=== PATIENT | female | born 1970 | race Caucasian/White ===

== ENCOUNTER → 2017-03-03 | Outpatient (CLI) | payer MEDICAID | LOC: FIMAGING 11:38 | DX: S46.912D Strain of unspecified muscle, fascia and tendon at shoulder and upper arm level, left arm, subsequent encounter (principal) ==

== ENCOUNTER 2017-06-09 00:06 | Emergency (ER) | payer MEDICAID ==
[2017-06-09 00:34] VITALS: BP 128/95; TEMP 98.1
--- NOTE | 2017-06-09 00:44 | EDPHY ---
H & P Stated Complaint: THINKS SHE WAS EXPOSED TO GAS IN HER HOUSE HPI/ROS: HPI CHIEF COMPLAINT: Trouble breathing at her apartment from fumes HISTORY OF PRESENT ILLNESS: This patient very pleasant 46-year-old female, she has significant past medical history for thyroid disease, hyponatremia, she does smoke tobacco daily, she presents emergency room by private vehicle states that there is a foul smell in her apartment it is making her feel as if she cannot breathe. She states they sprayed for bed bugs on ever since then she has been feeling ill. She denies chest pain or shortness of breath denies abdominal pain. Denies nausea vomiting. She does not want go back to her apartment. She presented to the emergency room and stating that she would not like to go back to apartment. Upon arrival here in emergency room she is resting comfortably clear lung sounds good air movement and in no acute distress. She appears well nontoxic. Patient distally tells me she feels anxious. Past Medical History: Hyponatremia, thyroid disease, hypertension Past Surgical History: No recent surgical history Social History: Denies daily alcohol or drugs, smokes tobacco daily Family History: Noncontributory ROS REVIEW OF SYSTEMS: A comprehensive 10 point review of systems is otherwise negative aside from elements mentioned in the history of present illness. Exam Constitutional appears well nontoxic,triage nursing summary reviewed, vital signs reviewed, awake/alert. Eyes normal conjunctivae and sclera, EOMI, PERRLA. HENT normal inspection, atraumatic, moist mucus membranes, no epistaxis, neck supple/ no meningismus, no raccoon eyes. Respiratory clear to auscultation bilaterally, normal breath sounds, no respiratory distress, no wheezing. Cardiovascular rate normal, regular rhythm, no murmur, no edema, distal pulses normal. Gastrointestinal soft, non-tender, no rebound, no guarding, normal bowel sounds, no distension, no pulsatile mass. Genitourinary no CVA tenderness. Musculoskeletal no midline vertebral tenderness, full range of motion, no calf swelling, no tenderness of extremities, no meningismus, good pulses, neurovascularly intact. Skin pink, warm, & dry, no rash, skin atraumatic. Neurologic awake, alert and oriented x 3, AAOx3, moves all 4 extremities equally, motor intact, sensory intact, CN II-XII intact, normal cerebellar, normal vision, normal speech. Psychiatric normal mood/affect. Heme/Lymph/Immune no lymphadenopathy. Differential Diagnosis: Includes but is not limited to in a particular order feeling ill from exposure from bed bug spray, chemical exposure, anxiety Medical Decision Making: Plan for this patient she has normal set of vitals, good breath sounds bilaterally, no hypoxia no acute distress. She appears well nontoxic not ill. No indication for blood work or any further medical workup here in emergency room. I do recommend she refrain from going back to her apartment stays with a friend. Contact her apartment airline managerial supervisor discuss options and trying to air at her apartment. She understands. Source: Patient - Personal History Current Tetanus/Diphtheria Vaccine: Yes Current Tetanus Diphtheria and Acellular Pertussis (TDAP): Yes Tetanus Vaccine Date: 2006 - Medical/Surgical History Hx Asthma: Yes Hx Chronic Respiratory Disease: No Hx Diabetes: No Hx Cardiac Disease: No Hx Renal Disease: No Hx Cirrhosis: No Hx Alcoholism: No Hx HIV/AIDS: No Hx Splenectomy or Spleen Trauma: No Other PMH: PMH- asthma, depression, hyperthyroid, HTN. denies any surgeries - Social History Smoking Status: Former smoker Constitutional: Initial Vital Signs Temperature (C) 36.7 C 06/09/17 00:10 Heart Rate 95 06/09/17 00:10 Respiratory Rate 18 06/09/17 00:10 Blood Pressure 128/95 H 06/09/17 00:10 O2 Sat (%) 99 06/09/17 00:10 O2 Delivery Mode Room Air Allergies/Adverse Reactions: No Known Allergies Allergy (Verified 06/09/17 00:34) Home Medications: Medication Instructions Recorded Levothyroxine [Synthroid 75 mcg 75 mcg PO MOTUWETHFRSA@2100 #14 tab 06/16/14 (*)] OLANZapine DISINTEGR [ZyPREXA 10 mg PO HS #14 tab 06/16/14 ZYDIS (*)] Departure - Departure Disposition: Home, Routine, Self-Care Clinical Impression: Anxiety Condition: Good Instructions: Anxiety (ED) Additional Instructions: 1. Please contact your manager work at her apartment discuss about the fumes in her apartment. 2. Stay with a friend this evening. Air out your apartment. Referrals: Maria Ines Olivas MD [Primary Care Provider] - As per Instructions
[2017-06-09 01:29] VITALS: PULSE 86; RESP 16; O2SAT 98
== END 2017-06-09 01:18 | disposition home or self-care (01) ==
DX: F41.9 Anxiety disorder, unspecified (principal); I10 Essential (primary) hypertension; J45.909 Unspecified asthma, uncomplicated; Z87.891 Personal history of nicotine dependence

== ENCOUNTER 2017-06-11 09:03 | Emergency (ER) | payer MEDICAID ==
[~2017-06-11 09:03] MED LIST: CEPHALEXIN 500 MG CAP PO SCH
[2017-06-11 09:26] LABS: % IMMATURE GRANULYOCYTES 0.2 % (0.0-1.1); ABSOLUTE IMMATURE GRANULOCYTES 0.01 10^3/uL (0.00-0.10); ADD DIFF? NO; ADD MORPH? NO; ADD SCAN? NO; ATYPICAL LYMPHOCYTE FLAG 0 (0-99); FRAGMENT RBC FLAG 0 (0-99); HEMOGLOBIN 14.6 g/dL (12.6-16.3); LEFT SHIFT FLG 0 (0-99); LIPEMIA HEMOLYSIS FLAG 90 (0-99); MEAN CELL HEMOGLOBIN 31.4 pg (27.9-34.1); MEAN CELL HEMOGLOBIN CONCENTR. 34.8 g/dL (32.4-36.7); MEAN CELL VOLUME 90.3 fL (81.5-99.8); MEAN PLATELET VOLUME 8.8 fL (8.7-11.7); PLATELET CLUMPS FLAG 0 (0-99); PLATELET COUNT 376 10^3/uL (150-400); RED BLOOD CELL COUNT 4.65 10^6/uL (4.18-5.33); RED CELL DISTRIBUTION WIDTH 13.2 % (11.5-15.2)
--- NOTE | 2017-06-11 09:28 | CPEKG ---
Heart Rate: 92 RR Interval: 652 P-R Interval: 160 QRSD Interval: 74 QT Interval: 344 QTC Interval: 426 P [place]: 76 QRS [place]: 72 T Wave [place]: -65 EKG Severity - NORMAL ECG - EKG Impression: SINUS RHYTHM Electronically Signed By: Korey Lay 11-Jun-2017 09:32:34
[2017-06-11 09:42] LABS: ANION GAP 15 mEq/L (8-16); CALCIUM 9.7 mg/dL (8.5-10.4); CARBON DIOXIDE 17 mEq/l (22-31); CHLORIDE 106 mEq/L (97-110); CREATININE 0.8 mg/dL (0.6-1.0); GLOMERULAR FILTRATION RATE > 60; GLUCOSE 175 mg/dL (70-100); POTASSIUM 3.8 mEq/L (3.5-5.2); SODIUM 138 mEq/L (134-144)
[2017-06-11] MEDS ORDERED: NS 1,000 ML IV ONE (09:51)
--- NOTE | 2017-06-11 09:55 | EDPHY ---
H & P Stated Complaint: Failure To Thrive, weakness Time Seen by Provider: 06/11/17 09:03 HPI/ROS: CHIEF COMPLAINT: weakness HISTORY OF PRESENT ILLNESS: 46-year-old female presents to the emergency department by ambulance after her sister call for a welfare check. Patient's sister has not heard from her in a few days which is unusual. Upon arrival patient was in bed. She states she has been in bed for a few days and does not feel well. She states she feels weak. Patient reports she has not eaten or had anything to drink taken her medications for a few days. She says this is unusual for her. She denies trauma, no head strike. Patient denies chest pain , shortness of breath, nausea, vomiting or diarrhea. She denies fevers. No cough, nasal congestion or sore throat. Patient states the last time she urinated was last night. REVIEW OF SYSTEMS: A comprehensive 10 point review of systems is otherwise negative aside from elements mentioned in the history of present illness. Source: Patient, Family, EMS Exam Limitations: Clinical condition - Personal History Tetanus Vaccine Date: 2006 - Medical/Surgical History Hx Asthma: Yes Hx Chronic Respiratory Disease: No Hx Diabetes: No Hx Cardiac Disease: No Hx Renal Disease: No Hx Cirrhosis: No Hx Alcoholism: No Hx HIV/AIDS: No Hx Splenectomy or Spleen Trauma: No Other PMH: PMH- asthma, depression, hyperthyroid, HTN. denies any surgeries - Social History Smoking Status: Heavy smoker Alcohol Use: None Drug Use: None - Physical Exam Exam: Physical Exam Gen: Alert and Oriented, NAD, very thin HEENT: PERRL, dry mucous membranes NECK: no meningismus CV: Tachycardic rate and regular rhythm PULM: CTAB, no wheezes ABDOMEN: soft, non tender to palpation, BS present BACK: No CVA tenderness NEURO: Neurologically grossly intact EXTREMITIES: normal appearing SKIN: no rash or break in skin on exposed skin PSYCH: answers questions appropriately. Constitutional: Initial Vital Signs Temperature (C) 37.1 C 06/11/17 09:13 Heart Rate 107 H 06/11/17 09:13 Respiratory Rate 16 06/11/17 09:13 Blood Pressure 134/96 H 06/11/17 09:13 O2 Sat (%) 95 06/11/17 09:13 O2 Delivery Mode Room Air Allergies/Adverse Reactions: No Known Allergies Allergy (Verified 06/09/17 00:34) Home Medications: Medication Instructions Recorded Levothyroxine [Synthroid 75 mcg 75 mcg PO RONNELL@2100 #14 tab 06/16/14 (*)] Cephalexin [Keflex] 500 mg PO BID 5 Days 06/11/17 Lisinopril 06/11/17 QUEtiapine FUMARATE 06/11/17 Medical Decision Making ED Course/Re-evaluation: 12pm-patient ambulatory without difficulty, stable gait. Patient's TSH is 24. She states she has missed her Synthroid for the past 3 days , maybe more. She missed her case management [facility] appointment to day though has an appointment with them on June 18. Our hospital block and case maker has confirmed this. The patient also has an appointment [facility] days. I have discussed with the patient the importance of taking her medications as prescribed. I will place her on Keflex for a urinary tract infection. Prescription has been dispensed through our pharmacy. Patient is given return precautions for any new symptoms, worsening symptoms or concerns. She reports feeling better after receiving 1 L of normal saline. Patient feels comfortable being discharged home. Patient has been seen by case management who has arranged follow-up care. Differential Diagnosis: Diagnosis considered but not limited to electrolyte abnormality, psychosis, hypothyroidism, urinary tract infection - Data Points Laboratory Results: Laboratory Results 06/11/17 09:16 06/11/17 09:16 06/11/17 06/11/17 06/11/17 11:35 09:16 09:16 WBC 6.19 10^3/uL 10^3/uL (3.80-9.50) RBC 4.65 10^6/uL 10^6/uL (4.18-5.33) Hgb 14.6 g/dL g/dL (12.6-16.3) Hct 42.0 % % (38.0-47.0) MCV 90.3 fL fL (81.5-99.8) MCH 31.4 pg pg (27.9-34.1) MCHC 34.8 g/dL g/dL (32.4-36.7) RDW 13.2 % % (11.5-15.2) Plt Count 376 10^3/uL 10^3/uL (150-400) MPV 8.8 fL fL (8.7-11.7) Neut % (Auto) 62.9 % % (39.3-74.2) Lymph % (Auto) 29.7 % % (15.0-45.0) [place] % (Auto) 5.7 % % (4.5-13.0) Eos % (Auto) 0.5 % L % (0.6-7.6) Baso % (Auto) 1.0 % % (0.3-1.7) Nucleat RBC Rel Count 0.0 % % (0.0-0.2) Absolute Neuts (auto) 3.90 10^3/uL 10^3/uL (1.70-6.50) Absolute Lymphs (auto) 1.84 10^3/uL 10^3/uL (1.00-3.00) Absolute Monos (auto) 0.35 10^3/uL 10^3/uL (0.30-0.80) Absolute Eos (auto) 0.03 10^3/uL 10^3/uL (0.03-0.40) Absolute Basos (auto) 0.06 10^3/uL 10^3/uL (0.02-0.10) Absolute Nucleated RBC 0.00 10^3/uL 10^3/uL (0-0.01) Immature Gran % 0.2 % % (0.0-1.1) Immature Gran # 0.01 10^3/uL 10^3/uL (0.00-0.10) Sodium 138 mEq/L mEq/L (134-144) Potassium 3.8 mEq/L mEq/L (3.5-5.2) Chloride 106 mEq/L mEq/L (97-110) Carbon Dioxide 17 mEq/l L mEq/l (22-31) Anion Gap 15 mEq/L mEq/L (8-16) BUN 13 mg/dL mg/dL (7-23) Creatinine 0.8 mg/dL mg/dL (0.6-1.0) Estimated GFR > 60 Glucose 175 mg/dL H mg/dL (70-100) Calcium 9.7 mg/dL mg/dL (8.5-10.4) Creatine Kinase 76 IU/L IU/L (0-156) TSH 24.800 uIU/mL H uIU/mL (0.465-4.680) Urine Color YELLOW Urine Appearance MODERATELY TURBID Urine pH 5.0 (5.0-7.5) Ur Specific [place] 1.017 (1.002-1.030) Urine Protein 1+ H (NEGATIVE) Urine Ketones 2+ H (NEGATIVE) Urine Blood 3+ H (NEGATIVE) Urine Nitrate NEGATIVE (NEGATIVE) Urine Bilirubin NEGATIVE (NEGATIVE) Urine Urobilinogen 2.0 EU H EU (0.2-1.0) Ur Leukocyte Esterase NEGATIVE (NEGATIVE) Urine RBC 50-182 /hpf H /hpf (0-3) Urine WBC 1-3 /hpf /hpf (0-3) Ur Epithelial Cells 3+ /lpf H /lpf (NONE-1+) Urine Bacteria 3+ /hpf H /hpf (NONE SEEN) Hyaline Casts 1-5 /lpf /lpf (0-1) Urine Mucus 4+ /lpf H /lpf (NONE-1+) Urine Glucose 1+ H (NEGATIVE) Medications Given: Discontinued Medications Sodium Chloride (Ns) 1,000 mls @ 0 mls/hr IV ONCE ONE; Wide Open PRN Reason: Protocol Stop: 06/11/17 09:52 Last Admin: 06/11/17 09:56 Dose: 1,000 mls Departure - Departure Disposition: Home, Routine, Self-Care Clinical Impression: Urinary tract infection Qualifiers: Urinary tract infection type: site unspecified Hematuria presence: with hematuria Qualified Code(s): N39.0 - Urinary tract infection, site not specified Hypothyroidism Qualifiers: Hypothyroidism type: unspecified Qualified Code(s): E03.9 - Hypothyroidism, unspecified Condition: Good Instructions: Cephalexin (By mouth), Urinary Tract Infection in Women (ED) Additional Instructions: Follow up with [facility], [address] [place], [place] [id number], appointment with Dr. Ely Rees on Thursday06/15/17 at 11:00AM. Please arrive a minimum of 15 minutes early for your scheduled appointment. Follow up with your block and case maker, Juliana at [address] [address] on Thursday06/13/17 to schedule an appointment. Follow up with [facility] prescriber, Dr. Antionette Cooley. Appointment scheduled for , 06/18/17 at 1PM. Take 500 mg of Keflex twice daily for 5 days for a urinary tract infection. Return to the emergency department immediately for any worsening symptoms, new symptoms or concerns. Referrals: Maria Ines Olivas MD [Primary Care Provider] - As per Instructions [facility] [Outside] - As per Instructions Prescriptions: Cephalexin [Keflex] 500 mg PO BID 5 Days
[2017-06-11 12:05] LABS: COLOR YELLOW; LEUKOCYTE ESTERASE,URINE NEGATIVE (NEGATIVE); NITRITE,URINE NEGATIVE (NEGATIVE)
[2017-06-11 12:13] LABS: BACTERIA 3+ /hpf (NONE SEEN); MUCUS 4+ /lpf (NONE-1+); RBC,URINE 50-182 /hpf (0-3)
[2017-06-11 13:03] VITALS: BP 117/79; PULSE 77; RESP 18; TEMP 97.9; O2SAT 98
== END 2017-06-11 13:03 | disposition home or self-care (01) ==
LOC: EDUNIT#
DX: N39.0 Urinary tract infection, site not specified (principal); E03.9 Hypothyroidism, unspecified; B96.89 Other specified bacterial agents as the cause of diseases classified elsewhere; J45.909 Unspecified asthma, uncomplicated; I10 Essential (primary) hypertension; F17.200 Nicotine dependence, unspecified, uncomplicated

== ENCOUNTER 2018-04-29 18:45 | Emergency (ER) | payer MEDICAID ==
[2018-04-29 18:51] VITALS: BP 149/80
--- NOTE | 2018-04-29 19:01 | EDPHY ---
H & P Stated Complaint: nausea , tasted soap in mouth after washing hands and smoking a cigarete Time Seen by Provider: 04/29/18 18:45 HPI/ROS: CHIEF COMPLAINT: Taste of soap in mouth HISTORY OF PRESENT ILLNESS: The patient presents the emergency department with a taste of soap in her mouth. She believes she may have gotten her mouth from washing her hands earlier today. The patient denies any additional complaints. The patient has no history of fever, cough, abdominal pain, vomiting or head injury. REVIEW OF SYSTEMS: A comprehensive 10 point review of systems is otherwise negative aside from elements mentioned in the history of present illness. Source: Patient - Personal History LMP (Females 10-55): Now Tetanus Vaccine Date: 2006 - Medical/Surgical History Hx Asthma: Yes Hx Chronic Respiratory Disease: No Hx Diabetes: No Hx Cardiac Disease: No Hx Renal Disease: No Hx Cirrhosis: No Hx Alcoholism: No Hx HIV/AIDS: No Hx Splenectomy or Spleen Trauma: No Other PMH: PMH- asthma, depression, hyperthyroid, HTN. denies any surgeries - Social History Smoking Status: Heavy smoker - Physical Exam Exam: General Appearance: Alert, no distress Eyes: Pupils equal and round no pallor or injection ENT, Mouth: Mucous membranes moist Respiratory: There are no retractions, lungs are clear to auscultation Cardiovascular: Regular rate and rhythm Gastrointestinal: Abdomen is soft and nontender, no masses, bowel sounds normal Neurological: 5/5 strength all 4 extremities Skin: Warm and dry, no rashes Musculoskeletal: Neck is supple nontender Extremities: symmetrical, full range of motion Constitutional: Initial Vital Signs Temperature (C) 36.8 C 04/29/18 18:49 Heart Rate 90 04/29/18 18:49 Respiratory Rate 16 04/29/18 18:49 Blood Pressure 149/80 H 04/29/18 18:49 O2 Sat (%) 96 04/29/18 18:49 O2 Delivery Mode Room Air Allergies/Adverse Reactions: No Known Allergies Allergy (Verified 06/09/17 00:34) Home Medications: Medication Instructions Recorded Levothyroxine [Synthroid 75 mcg 75 mcg PO RONNELL@2100 #14 tab 06/16/14 (*)] Lisinopril 06/11/17 QUEtiapine FUMARATE 06/11/17 Medical Decision Making ED Course/Re-evaluation: The patient presents to the emergency department with a bad taste in her mouth after likely getting soap on her hands earlier today. The patient has been reassured I see no evidence of an acute emergency condition. She is discharged from the emergency department. Departure - Departure Disposition: Home, Routine, Self-Care Clinical Impression: Bad taste in mouth Condition: Good Instructions: Poison Proofing Your Home (ED) Additional Instructions: 1. Follow up with your primary care provider as scheduled. Referrals: Maria Ines Olivas MD [Primary Care Provider] - As per Instructions
== END 2018-04-29 19:14 | disposition home or self-care (01) ==
LOC: EDUNIT#
DX: R43.2 Parageusia (principal); J45.909 Unspecified asthma, uncomplicated; F17.200 Nicotine dependence, unspecified, uncomplicated; I10 Essential (primary) hypertension

== ENCOUNTER 2018-05-01 12:58 | Inpatient (IN) | payer MEDICAID ==
--- NOTE | 2018-05-01 13:01 | EDPHY ---
HPI/HX/ROS/PE/MDM Narrative: CHIEF COMPLAINT: Nausea, vomiting, diarrhea HISTORY OF PRESENT ILLNESS: The patient is a 47 y/o female with a history of hypertension, asthma, and depression arriving via EMS after developing nausea, vomiting, diarrhea, painful urination, dizziness, and a subjective fever yesterday. She has had a total of 4-5 episodes of vomiting and several episodes of diarrhea today. Denies blood in vomit, diarrhea, or urine. Denies being around people with similar symptoms or eating abnormal food. Today her symptoms did not improve which concerned the patient so she called EMS. While en route to the hospital she was given 4mg IV Zofran for nausea, which mildly alleviated her symptoms. Denies history of abdominal surgery. Denies history of asthma or emphysema. Denies illicit drug use although she does use tobacco. No chills, cough, chest pain, shortness of breath, palpitations, frequent urination, headache, lightheadedness. She was in this emergency department 2 days ago with the taste of soap in her mouth and was discharged home. REVIEW OF SYSTEMS: Aside from elements discussed in the HPI, a comprehensive 10-point review of systems was reviewed and is negative. PAST MEDICAL HISTORY: Hypertension, asthma, depression, hyperthyroid, right ankle surgery SOCIAL HISTORY: Lives in [place], , not employed, smoker VITAL SIGNS: Reviewed by me GENERAL: Well-developed, well-nourished, resting comfortably in no respiratory distress. HEENT: Atraumatic. Eyes: No icterus, no injection. Mouth: moist mucous membranes. No erythema or lesions. Neck: supple with no adenopathy. LUNGS: Bilateral scattered rhonchi and coarse breath sounds, no wheezes or rales. CARDIAC: Regular rate and rhythm, no rubs, murmurs or gallops. ABDOMEN: Mild right upper quadrant tenderness. Soft, nondistended, bowel sounds normal. BACK: No CVA tenderness. EXTREMITIES: No trauma. No edema. Range of motion is normal throughout. NEURO: Alert and oriented, grossly nonfocal. SKIN: Warm and dry, no rash. PSYCHIATRIC: Normal mentation, no agitation. Portions of this note were transcribed by a medical office specialist. I personally performed a history, physical exam, medical decision making, and confirmed accuracy of information the transcribed note. ED Course: The patient is a 47 y/o female with a history of hypertension, asthma, and depression arriving via EMS after developing nausea, vomiting, diarrhea, painful urination, dizziness, and a subjective fever yesterday. On exam she has bilateral scattered rhonchi and coarse breath sounds as well as mild right upper quadrant tenderness to palpation. Labs and chest x-ray ordered. 1L IV NS administered. 1354: Patient has a sodium of 112; patient will need to be admitted for her symptoms as well as hyponatremia. Chest x-ray is consistent with airways disease without any focal infiltrate. 1405: Spoke with hospitalist service, Dr. Gusman accepts admission of this patient. MDM: Differential diagnosis of the patient's nausea and vomiting was considered including but not limited to gastroenteritis, gastritis, electrolyte abnormalities, dehydration, alcohol intoxication, withdrawal symptoms, intraabdominal processes including appendicitis, pancreatitis, bowel obstruction and medication side effect. - Data Points Imaging Results: CXR: Impression: 1. Findings most consistent with airways disease are noted. 2. See above report for additional findings. Dictated By: Denis Augustin MD Imaging: I viewed and interpreted images myself Laboratory Results: Laboratory Results 05/01/18 13:00 05/01/18 13:04 Medications Given: Dextrose (D5w) 1,000 mls @ 25 mls/hr IV CONT JAMI Stop: 10/28/18 21:59 Last Admin: 05/02/18 08:24 Dose: 1,000 mls Ondansetron HCl (Zofran) 4 mg IVP Q4HRS PRN PRN Reason: Nausea/Vomiting, Can't Take PO Stop: 10/28/18 14:39 Last Admin: 05/02/18 07:55 Dose: 4 mg Ondansetron HCl (Zofran Odt) 4 mg PO Q4HRS PRN PRN Reason: Nausea/Vomiting, Use 1st Stop: 10/28/18 14:39 Last Admin: 05/02/18 19:27 Dose: 4 mg Discontinued Medications Desmopressin Acetate (Desmopressin 10 Mcg/0.1 Ml [place]) 10 mcg ALTNARE ONCE ONE Stop: 05/02/18 02:31 Last Admin: 05/02/18 02:20 Dose: 1 spray Sodium Chloride (Ns) 1,000 mls @ 0 mls/hr IV EDNOW ONE; Wide Open PRN Reason: Protocol Stop: 05/01/18 13:23 Last Admin: 05/01/18 13:25 Dose: 1,000 mls Sodium Chloride (1/2 Ns) 1,000 mls @ 75 mls/hr IV CONT JAMI Stop: 10/28/18 18:29 Last Admin: 05/01/18 18:37 Dose: 1,000 mls Potassium Chloride (Potassium Cl 10 Meq (Premix)) 100 mls @ 100 mls/hr IV Q1H JAMI Stop: 05/01/18 21:29 Last Admin: 05/01/18 20:41 Dose: Not Given Potassium Chloride (Klor-Con) 30 meq PO ONCE ONE Stop: 05/01/18 20:16 Last Admin: 05/01/18 20:29 Dose: 30 meq General Time Seen by Provider: 05/01/18 13:00 Initial Vital Signs: Initial Vital Signs Temperature (C) 36.7 C 05/01/18 12:58 Heart Rate 91 05/01/18 12:58 Respiratory Rate 16 05/01/18 12:58 Blood Pressure 128/89 H 05/01/18 12:58 O2 Sat (%) 97 05/01/18 12:58 O2 Delivery Mode Room Air Allergies/Adverse Reactions: No Known Allergies Allergy (Verified 05/01/18 13:05) Home Medications: Medication Instructions Recorded Cholecalciferol (Vitamin D3) 2,000 unit PO DAILY 05/02/18 [Vitamin D3] Levothyroxine Sodium 88 mcg PO DAILY 05/02/18 Mirtazapine [Remeron] 15 mg PO HS 05/02/18 OLANZapine [Zyprexa] 20 mg PO HS 05/02/18 Departure - Departure Disposition: [facility] Clinical Impression: Hyponatremia Diarrhea Qualifiers: Diarrhea type: unspecified type Qualified Code(s): R19.7 - Diarrhea, unspecified Nausea and vomiting Qualifiers: Vomiting type: unspecified Vomiting Intractability: non-intractable Qualified Code(s): R11.2 - Nausea with vomiting, unspecified Condition: Fair Report Scribed for: Angelica Mcgowan Report Scribed by: Patti Beckett Date of Report: 05/01/18 Time of Report: 13:01
[2018-05-01] MEDS ORDERED: NS 1,000 ML IV ONE (13:22)
[2018-05-01 13:31] LABS: PLATELET COUNT 423 10^3/uL (150-400)
[2018-05-01] MEDS ORDERED: LORazepam 2 MG/ML INJ IVP PRN (14:40)
[2018-05-01] MEDS ORDERED: LORazepam 0.5 MG TAB PO PRN (14:40)
[2018-05-01] MEDS ORDERED: oxyCODONE IR 5 MG TAB PO PRN (14:40)
--- NOTE | 2018-05-01 15:55 | GHP ---
[f rep st] HISTORY AND PHYSICAL DATE OF ADMISSION: 05/01/2018 CHIEF COMPLAINT: Nausea, vomiting. HISTORY: This is a 47-year-old female with a past medical history of hypothyroidism, as well as a hi story of what sounds like depression with psychotic features, who is admitted with complaints of naus ea, vomiting, and abdominal pain. The patient notes that she has had fairly persistent vomiting for the last 2 days. She has also had some bouts of diarrhea along with that. She has felt somewhat lig htheaded and dizzy but has had no loss of consciousness. She denies any sick contacts that she is aw are of. She, otherwise, denies any issues, including chest pain, shortness of breath, confusion. PAST MEDICAL HISTORY: 1. Hypothyroid. 2. Hypertension. 3. Depression with psychotic features. PAST SURGICAL HISTORY: Denies. SOCIAL HISTORY: Patient lives independently. She is unemployed. She is a nonsmoker. FAMILY HISTORY: Reviewed and noncontributory. REVIEW OF SYSTEMS: 10-point review of systems obtained and negative except as per HPI. HOME MEDICATIONS: 1. Quetiapine. 2. Lisinopril. 3. Levothyroxine. ALLERGIES: No known drug allergies. PHYSICAL EXAM: VITAL SIGNS: BP 117/79, heart rate 90, respiratory rate 16, O2 sats 97% on room air. Temperature is 36.7. GENERAL APPEARANCE: This is a thin female. She is awake and alert . She is in no acute distress. EYES: Anicteric. HENT: Dry mucous membranes. CARDIOVASCULAR: Re gular rate and rhythm. No M/R/G. PULMONARY: CTA bilaterally. Normal work of breathing. ABDOMEN: Soft, mild tenderness to palpation diffusely. Bowel sounds are decreased. EXTREMITIES: No clubbin g, cyanosis, or edema. SKIN: Warm, dry, well perfused. NEURO/PSYCH: Oriented and appropriate. CLINICAL DATA: Labs reviewed. Notable for a sodium of 112. White blood cell count of 10.4, hematoc rit of 36.3. Chest x-ray, personally reviewed and interpreted, shows central peribronchial thickening, consistent with airways disease. Otherwise, unremarkable. ASSESSMENT/PLAN: A 47-year-old female with a past medical history of hypothyroidism, hypertension, a nd depression with psychosis, admitted with profound hyponatremia. 1. Severe hyponatremia, somewhat difficult to determine how symptomatic she has from this, as she larson s evidence of cognitive dysfunction, some question of developmental delay versus all related to her p sychiatric history. At any rate, she does have gastrointestinal symptoms. She was given a liter of normal saline in the emergency room, and we will order stat sodium for recheck. We will order urine and serum osmolality, as well as serum sodium. The patient will be admitted to intensive care unit f or frequent, q.2 hours sodium checks. Renal has been consulted and will follow. We will also check a TSH given her history of hypothyroidism. Goal will be to increase her sodium by less than 10 mEq o corie the next 24 hours. 2. Hypothyroidism. Again, we will check a TSH. She is on levothyroxine, which will be continued. 3. Hypertension. Currently, blood pressure appears largely in the normal range. We will hold her l isinopril. 4. Depression with psychotic features. The patient does have a somewhat unusual affect and what darrian ears to be some cognitive dysfunction. Again, unclear if this is related to her psychiatric history versus developmental delay. We will resume her psychiatric medications, though this may be in part c ontributing to her hyponatremia. 5. Inpatient status. The patient will require a [id number]-hour stay for evaluation and manage ment of above. The patient is high risk given profound hyponatremia and concerns for rapid correctio n. Greater than 40 minutes of critical care time spent in the care of this patient in evaluation and man agement of above and discussion with emergency room and Renal regarding her treatment plan. /[id number]/MODL
--- NOTE | 2018-05-01 16:55 | PDMN ---
Medical Necessity Medical necessity: C/M review: est. > 2 MN LOS for eval and TX of acute and persistent severe hyponatremia requiring planned Nephrology consult, ongoing Q 2 hr. Na checks, cardiac monitoring in ICU, comorbid hypothyroidism, hypertension, depression with psychotic features, some cognitive dysfunction - unclear if related to psychiatric history versus developmental delay, history of nausea, vomiting, abdominal pain, diarrhea for two days prior to this admission per H/P.
[2018-05-01] MEDS ORDERED: PROTOCOL POTASSIUM 1 DOSE MISC PRN (17:19)
--- NOTE | 2018-05-01 18:25 | PDCONSULT ---
Mold Design Engineer Note: Assessment/Plan: Hyponatremia: Pt with sodium of 112 on presentation, up to 123 now after 1L NS. She responded quickly to IVFs, but urine studies more consistent with SIADH. - Want to avoid rapid correction as not clear how long she has been low. - Goal sodium tomorrow is 118-120. - Will start on 1/2NS. - Will continue to monitor sodium q2h and adjust fluids as needed. - Will check TSH and am cortisol. Hypokalemia: K 3.3, will replace and continue to monitor. Thank you for the interesting consult. Nephrology will continue to follow, please call if you have any additional questions or concerns. H & P Stated Complaint: n/v/d Time Seen by Provider: 05/01/18 13:00 HPI/ROS: HPI: Ms. Fam is a 47 yo F with h/o HTN and hypothyroidism who presents to ER today with complaints of N/V/D/abdominal pain. Pt states that she has been feeling poorly for the past two days. She has been having not frequent but loose and watery stools at home, abdominal pain and nausea. She has been vomiting today. She has had some lightheadedness and GOMEZ, denies any LOC or seizures She was a little confused at home. She denies taking any diuretics. She notes she has not been able to eat or drink much in the past few days. Na on presentation was 112. She was given 1L NS in ER and Na went up to 118 quickly and now is 123. She is feeling a little better but still has some nausea and abdominal pain. ROS: positive per HPI, rest of 10-point ROS negative Source: Patient - Personal History LMP (Females 10-55): Now Current Tetanus/Diphtheria Vaccine: Unsure Current Tetanus Diphtheria and Acellular Pertussis (TDAP): Unsure Tetanus Vaccine Date: 2006 - Medical/Surgical History Hx Asthma: Yes Hx Chronic Respiratory Disease: No Hx Diabetes: No Hx Cardiac Disease: No Hx Renal Disease: No Hx Cirrhosis: No Hx Alcoholism: No Hx HIV/AIDS: No Hx Splenectomy or Spleen Trauma: No Other PMH: PMH- asthma, depression, hyperthyroid, HTN. denies any surgeries - Family History Significant Family History: No pertinent family hx - Social History Smoking Status: Heavy smoker - Physical Exam Exam: General: alert and oriented, no acute distress Eyes; EOMI, PERRL OP: Clear, MMM Neck: supple, no thyromegaly CV: RRR, no edema BLE Resp; CTA bilat, nonlabored respirations Abd: soft, NT/ND Neuro; CN II-XII grossly intact, no asterixis Psych; cooperative, blunted affect Skin: C/D/I, no rash Constitutional: Initial Vital Signs Temperature (C) 36.7 C 05/01/18 12:58 Heart Rate 91 05/01/18 12:58 Respiratory Rate 16 05/01/18 12:58 Blood Pressure 128/89 H 05/01/18 12:58 O2 Sat (%) 97 05/01/18 12:58 O2 Delivery Mode Room Air Allergies/Adverse Reactions: No Known Allergies Allergy (Verified 05/01/18 13:05) Home Medications: Medication Instructions Recorded Levothyroxine [Synthroid 75 mcg 75 mcg PO CHRISTIANOETHCATIE@2100 #14 tab 06/16/14 (*)] Lisinopril 06/11/17 QUEtiapine FUMARATE 06/11/17 Lab and Imaging 05/01/18 13:00 05/01/18 16:30 WBC 10.46 10^3/uL (3.80-9.50) H 05/01/18 13:00 RBC 4.42 10^6/uL (4.18-5.33) 05/01/18 13:00 Hgb 13.3 g/dL (12.6-16.3) 05/01/18 13:00 Hct 36.3 % (38.0-47.0) L 05/01/18 13:00 MCV 82.1 fL (81.5-99.8) 05/01/18 13:00 MCH 30.1 pg (27.9-34.1) 05/01/18 13:00 MCHC 36.6 g/dL (32.4-36.7) 05/01/18 13:00 RDW 12.2 % (11.5-15.2) 05/01/18 13:00 Plt Count 423 10^3/uL (150-400) H 05/01/18 13:00 MPV 8.3 fL (8.7-11.7) L 05/01/18 13:00 Neut % (Auto) 63.2 % (39.3-74.2) 05/01/18 13:00 Lymph % (Auto) 29.4 % (15.0-45.0) 05/01/18 13:00 Pepin % (Auto) 5.6 % (4.5-13.0) 05/01/18 13:00 Eos % (Auto) 0.5 % (0.6-7.6) L 05/01/18 13:00 Baso % (Auto) 0.3 % (0.3-1.7) 05/01/18 13:00 Nucleat RBC Rel Count 0.0 % (0.0-0.2) 05/01/18 13:00 Absolute Neuts (auto) 6.61 10^3/uL (1.70-6.50) H 05/01/18 13:00 Absolute Lymphs (auto) 3.08 10^3/uL (1.00-3.00) H 05/01/18 13:00 Absolute Monos (auto) 0.59 10^3/uL (0.30-0.80) 05/01/18 13:00 Absolute Eos (auto) 0.05 10^3/uL (0.03-0.40) 05/01/18 13:00 Absolute Basos (auto) 0.03 10^3/uL (0.02-0.10) 05/01/18 13:00 Absolute Nucleated RBC 0.00 10^3/uL (0-0.01) 05/01/18 13:00 Immature Gran % 1.0 % (0.0-1.1) 05/01/18 13:00 Immature Gran # 0.10 10^3/uL (0.00-0.10) 05/01/18 13:00 Sodium 123 mEq/L (135-145) L 05/01/18 16:30 Potassium 3.3 mEq/L (3.3-5.0) 05/01/18 13:00 Chloride 81 mEq/L (97-110) L 05/01/18 13:00 Carbon Dioxide 19 mEq/l (22-31) L 05/01/18 13:00 Anion Gap 12 mEq/L (8-16) 05/01/18 13:00 BUN 2 mg/dL (7-23) L 05/01/18 13:00 Creatinine 0.5 mg/dL (0.6-1.0) L 05/01/18 13:00 Estimated GFR > 60 05/01/18 13:00 Glucose 127 mg/dL (70-100) H 05/01/18 13:00 Serum Osmolality 233 mosmo/kg (280-297) L 05/01/18 13:04 Calcium 8.6 mg/dL (8.5-10.4) 05/01/18 13:00 Total Bilirubin 0.4 mg/dL (0.1-1.4) 05/01/18 13:00 Conjugated Bilirubin 0.2 mg/dL (0.0-0.5) 05/01/18 13:00 Unconjugated Bilirubin 0.2 mg/dL (0.0-1.1) 05/01/18 13:00 AST 20 IU/L (14-46) 05/01/18 13:00 ALT 21 IU/L (9-52) 05/01/18 13:00 Alkaline Phosphatase 92 IU/L (38-126) 05/01/18 13:00 Total Protein 6.6 g/dL (6.3-8.2) 05/01/18 13:00 Albumin 3.9 g/dL (3.5-5.0) 05/01/18 13:00 Lipase 75 IU/L (23-300) 05/01/18 13:00 TSH 0.097 uIU/mL (0.465-4.680) L 05/01/18 13:04 Beta HCG, Qual NEGATIVE 05/01/18 13:00 Urine Color COLORLESS 05/01/18 14:30 Urine Appearance CLEAR 05/01/18 14:30 Urine pH 7.0 (5.0-7.5) 05/01/18 14:30 Ur Specific [place] 1.002 (1.002-1.030) 05/01/18 14:30 Urine Protein NEGATIVE (NEGATIVE) 05/01/18 14:30 Urine Ketones NEGATIVE (NEGATIVE) 05/01/18 14:30 Urine Blood 1+ (NEGATIVE) H 05/01/18 14:30 Urine Nitrate NEGATIVE (NEGATIVE) 05/01/18 14:30 Urine Bilirubin NEGATIVE (NEGATIVE) 05/01/18 14:30 Urine Urobilinogen NEGATIVE EU (0.2-1.0) 05/01/18 14:30 Ur Leukocyte Esterase NEGATIVE (NEGATIVE) 05/01/18 14:30 Urine RBC 1-3 /hpf (0-3) 05/01/18 14:30 Urine WBC NONE SEEN /hpf (0-3) 05/01/18 14:30 Ur Epithelial Cells NONE SEEN /lpf (NONE-1+) 05/01/18 14:30 Urine Mucus Not Reported 05/01/18 14:30 Urine Osmolality 130 mosmo/kg (300-900) L 05/01/18 14:58 Ur Random Creatinine 5.0 mg/dL 05/01/18 14:58 Ur Random Sodium 55 mEq/L (30-90) 05/01/18 14:58 Urine Glucose 1+ (NEGATIVE) H 05/01/18 14:30
[2018-05-01] MEDS ORDERED: 1/2 NS 1,000 ML IV SCH (18:30)
[2018-05-01] MEDS ORDERED: POTASSIUM CL 10 MEQ TAB PO ONE (20:15)
[2018-05-01] MEDS: POTASSIUM Cl (KCl) 100 ML IV SCH (20:41)
[2018-05-01] MEDS: ONDANSETRON 4 MG/2 ML VIAL IVP PRN (21:58)
[2018-05-02] MEDS ORDERED: DESMOPRESSIN 10 MCG/0.1 ML 5ML NASAL SPRAY ALTNARE ONE (02:30)
[2018-05-02] MEDS: ONDANSETRON 4 MG/2 ML VIAL IVP PRN (07:55)
[2018-05-02] MEDS: D5W 1,000 ML IV SCH (08:24)
--- NOTE | 2018-05-02 14:09 | HOSPPROG ---
Hospitalist Progress Note Assessment/Plan: 47 yo F with PMH of depression presenting with severe hyponatremia # severe hyponatremia: Na of 112 on arrival and increased significantly with 1L NS given in ER, likely hypovolemic, hypotonic hyponatremia 2/2 n/v/d x 2 days prior to presentation. She overcorrected overnight but Na now closer to goal with most recent being 120, would like patient to continue to increase by no more than 8-10 meq/24 hour period to avoid CPM. Currently receiving D5w to slow rate of correction, did require desmopressin overnight. # n/v/d: suspect viral gastroenteritis, sxs have now resolved # depression: previously severe and with psychotic features, will resume her remeron and olanzapine at HS # hypothyroid: with tsh appropriately suppressed on lt4, will continue # IP status, will need > 48 hours stay for eval mgmt of above Care plan reviewed with Dr. Martinez as above, Patient remains high risk and will continue q2 hour Na checks in ICU > 35 min critical care time spent in mgmt/eval of above Subjective: no significant overnight events, patient feeling a bit better today , no longer having significant n/v Objective: Vital Signs Temp Pulse Resp BP Pulse Ox 36.8 C 98 15 140/80 H 98 05/02/18 11:00 05/02/18 13:00 05/02/18 13:00 05/02/18 13:00 05/02/18 13:00 Laboratory Results 05/02/18 12:55 05/01/18 05/02/18 05/03/18 05:59 05:59 05:59 Intake Total 980 1250 Output Total 3600 800 Balance -2620 450 awake alert anicteric poor dentition rrr no mrg cta b soft nt nd no cce warm dry well perfused oriented appropriate ICD10 Worksheet Patient Problems: Problems Problem Status Onset Delirium Acute Major depressive disorder, recurrent episode with mood-congruent psychotic features Acute Diarrhea Acute Nausea and vomiting Acute Hyponatremia Acute
--- NOTE | 2018-05-02 16:59 | SOAPPROG ---
SOAP Progress Note Assessment/Plan: Assessment/Plan: Hyponatremia: pt with sodium of 112 on presentation, up to 123 after 1L NS and improved quickly afterward. Her urine studies were consistent with SIADH but she responded swiftly to IVFs. Want to avoid fast correction, was given D5W and DDAVP overnight to avoid that. - Na now 120, which is 8 point rise in 24 hrs. - Will continue D5W, lower rate to 75ml/hr. - Pt not on fluid restriction. - Goal sodium is to be no more than 125 by tomorrow am. - Will continue to monitor q3h. Hypokalemia: improved with replacement, will continue to monitor. Subjective: Pt had marked increase overnight in sodium from 112 yesterday afternoon to 131, was given DDAVP and continued D5W, and sodium came down. She notes no confusion now, dizziness improving, no N/V or abdominal pain. She still feels tired and weak. Objective: Vital Signs Temp Pulse Resp BP Pulse Ox 37 C 86 20 127/84 H 99 05/02/18 15:00 05/02/18 15:00 05/02/18 15:00 05/02/18 15:00 05/02/18 15:00 05/01/18 05/02/18 05/03/18 05:59 05:59 05:59 Intake Total 980 1490 Output Total 3600 1200 Balance -2620 290 General: alert and oriented, no acute distress Eyes; EOMI, PERRL OP: Clear CV: RRR Resp: nonlabored respirations on RA Abd: Soft, NT/ND Ext: no edema BLE Neuro: CN II-XII grossly intact ICD10 Worksheet Patient Problems: Problems Problem Status Onset Diarrhea Acute Hyponatremia Acute Nausea and vomiting Acute Delirium Acute Major depressive disorder, recurrent episode with mood-congruent psychotic features Acute
[2018-05-02] MEDS: ONDANSETRON DISINTEGRATING 4 MG TAB PO PRN (19:27)
[2018-05-02] MEDS ORDERED: POTASSIUM CL 10 MEQ TAB PO ONE (20:30)
[2018-05-02] MEDS: MIRTAZAPINE 15 MG TAB PO SCH (20:58)
[2018-05-02] MEDS: OLANZapine 10 MG TAB PO SCH (20:58)
[2018-05-03] MEDS: LEVOTHYROXINE 88 MCG TAB PO SCH (07:32)
--- NOTE | 2018-05-03 11:59 | HOSPPROG ---
Hospitalist Progress Note Assessment/Plan: 47 yo F with PMH of depression presenting with severe hyponatremia # severe hyponatremia: Na of 112 on arrival and increased significantly with 1L NS given in ER, likely hypovolemic, hypotonic hyponatremia 2/2 n/v/d x 2 days prior to presentation although urine studies more c/w SIADH, she has responded more consistent with low volume hyponatremia. Her Na has been fairly erratic following D5 as well as DDAVP, currently does seem to continue to improve and slowing rate of correction with D5. Asymptomatic now # n/v/d: suspect viral gastroenteritis, sxs have now resolved # depression: previously severe and with psychotic features, will resume her remeron and olanzapine at HS # hypothyroid: with tsh appropriately suppressed on lt4, will continue # IP status, will need > 48 hours stay for eval mgmt of above Care plan reviewed with Dr. Griffin as above, Patient remains high risk and will continue q2 hour Na checks in ICU > 35 min critical care time spent in mgmt/eval of above Subjective: no significant overnight events patient feeling beter Objective: Vital Signs Temp Pulse Resp BP Pulse Ox 37 C 79 19 124/84 H 98 05/03/18 11:00 05/03/18 11:00 05/03/18 11:00 05/03/18 11:00 05/03/18 11:00 Laboratory Results 05/03/18 09:55 05/02/18 05/03/18 05/04/18 05:59 05:59 05:59 Intake Total 980 3450 1500 Output Total 3600 4300 1600 Balance -2620 -850 -100 awake alert anicteric poor dentition rrr no mrg cta b soft nt nd no cce warm dry well perfused oriented appropriate ICD10 Worksheet Patient Problems: Problems Problem Status Onset Diarrhea Acute Hyponatremia Acute Nausea and vomiting Acute Delirium Acute Major depressive disorder, recurrent episode with mood-congruent psychotic features Acute
[2018-05-03] MEDS: D5W 1,000 ML IV SCH (12:17)
--- NOTE | 2018-05-03 14:08 | SOAPPROG ---
SOAP Progress Note Assessment/Plan: Assessment: 47 y/o F with hyponatremia. Hyponatremia: pt with sodium of 112 on presentation, up to 123 after 1L NS and improved quickly afterward. Her urine studies were consistent with SIADH but she responded swiftly to IVFs then dropped again on 05/02. - Na up to 127, goal today at 4pm about 125mg/dL however acute - Increased d5 to 200ml/hr - continue to monitor q3h - Pt not on fluid restriction - resend urine studies (previously low osm) at 4pm and most likely will need to resume fluid restriction tonight - may allow sodium to normalize if stable at 4pm and will consider lasix tomorrow - will continue to monitor, please contact if ?s Hypokalemia: improved with replacement, will continue to monitor. 05/03/18 14:06 05/03/18 14:43 Subjective: Running D5 all night. Patient collecting urine in hat. Trying to drink fluids. Getting up to walk and feeling well. Objective: Vital Signs Temp Pulse Resp BP Pulse Ox 36.5 C 80 21 H 131/85 H 98 05/03/18 13:06 05/03/18 13:06 05/03/18 13:06 05/03/18 13:06 05/03/18 13:06 Laboratory Results 05/03/18 12:50 05/02/18 05/03/18 05/04/18 05:59 05:59 05:59 Intake Total 980 3450 1500 Output Total 3600 4300 1800 Balance -2620 -850 -300 Physical Exam - Physical Exam General Appearance: WD/WN, alert, no apparent distress, thin EENT: PERRL/EOMI Neck: non-tender, full range of motion, supple Respiratory: chest non-tender, lungs clear, normal breath sounds Cardiac/Chest: normal peripheral pulses, regular rate, rhythm Abdomen: normal bowel sounds, non-tender, soft Back: Normal inspection Skin: normal color, warm/dry Extremities: normal range of motion, non-tender Neuro/Psych: no motor/sensory deficits, alert, depressed affect ICD10 Worksheet Patient Problems: Problems Problem Status Onset Diarrhea Acute Hyponatremia Acute Nausea and vomiting Acute Delirium Acute Major depressive disorder, recurrent episode with mood-congruent psychotic features Acute
--- NOTE | 2018-05-03 16:08 | ASMTCMCOM ---
CM Note CM Note Notes: Pt was admitted with hyponatremia after n/v and abdominal pain x2 days. She has a hx of depression. She lives alone and has a previous admission about 10 months ago for FTT. CM provided her with a friend's phone number but pt was unable to reach her today. Pt does not have her phone with her and left her keys at home. A cab voucher can be provided for pt if she is unable to get a ride home. CM will follow for any d/c needs. Date Signed: 05/03/2018 04:07 PM Electronically Signed By:PARISA Cano
[2018-05-03] MEDS: OLANZapine 10 MG TAB PO SCH (19:47)
[2018-05-03] MEDS: MIRTAZAPINE 15 MG TAB PO SCH (19:47)
[2018-05-04] MEDS: ONDANSETRON 4 MG/2 ML VIAL IVP PRN (07:22)
[2018-05-04] MEDS: LEVOTHYROXINE 88 MCG TAB PO SCH ×2 (07:22→08:13)
--- NOTE | 2018-05-04 14:20 | SOAPPROG ---
SOAP Progress Note Assessment/Plan: Assessment: 47 y/o F with hyponatremia. Hyponatremia: pt with sodium of 112 on presentation, up to 123 after 1L NS and improved quickly afterward. Her urine studies were consistent with SIADH but she responded swiftly to IVFs then dropped again on 05/02. - Na up to 139 today - d5 stopped yesterday - low urine Na and osm may have been 2/2 to d5 and not eating much - may monitor daily - Pt back on fluid restriction, however may consider d/c and see if patient remains normal - will continue to monitor, please contact if ?s, will get follow-up in 4 weeks in [place] - please get labs 5-7 days post d/c with PCP to monitor sodium Hypokalemia: Resolved with eating. Will sign off, please contact if ?s. Consult appreciated. 05/04/18 14:19 Subjective: Eating significantly improved. Up walking. Objective: Vital Signs Temp Pulse Resp BP Pulse Ox 36.7 C 104 H 20 134/89 H 98 05/04/18 04:00 05/04/18 08:00 05/04/18 08:00 05/04/18 08:00 05/04/18 08:00 Laboratory Results 05/04/18 13:00 05/03/18 05/04/18 05/05/18 05:59 05:59 05:59 Intake Total 3450 2540 Output Total 4300 5350 200 Balance -850 -2810 -200 Physical Exam - Physical Exam General Appearance: WD/WN, alert, no apparent distress, thin EENT: PERRL/EOMI, TMs normal Neck: non-tender, full range of motion, supple Respiratory: lungs clear, normal breath sounds Cardiac/Chest: normal peripheral pulses, regular rate, rhythm Abdomen: normal bowel sounds, non-tender, soft Back: Normal inspection Skin: normal color, warm/dry Extremities: normal range of motion, non-tender Neuro/Psych: no motor/sensory deficits, alert, normal mood/affect ICD10 Worksheet Patient Problems: Problems Problem Status Onset Diarrhea Acute Hyponatremia Acute Nausea and vomiting Acute Delirium Acute Major depressive disorder, recurrent episode with mood-congruent psychotic features Acute
[2018-05-04] MEDS: MIRTAZAPINE 15 MG TAB PO SCH (21:03)
[2018-05-04] MEDS: OLANZapine 10 MG TAB PO SCH (21:03)
[2018-05-05] MEDS: ACETAMINOPHEN 325 MG TAB PO PRN ×2 (04:53→09:14)
[2018-05-05] MEDS: LEVOTHYROXINE 88 MCG TAB PO SCH (04:57)
[2018-05-05] MEDS: ONDANSETRON DISINTEGRATING 4 MG TAB PO PRN (04:58)
--- NOTE | 2018-05-05 06:28 | HOSPPROG ---
Hospitalist Progress Note Assessment/Plan: 47 yo F with PMH of depression presenting with severe hyponatremia # severe hyponatremia: Na of 112 on arrival and increased significantly with 1L NS given in ER, likely hypovolemic, hypotonic hyponatremia 2/2 n/v/d x 2 days prior to presentation although urine studies more c/w SIADH, she has responded more consistent with low volume hyponatremia. Her Na has been fairly erratic following D5 as well as DDAVP, currently does seem to continue to improve and slowing rate of correction with D5. Today Na has been within normal range without correction, d5 discontinued. Will dc in am so long as stable and have her f/u with pcp in next 5-7 days for repeat chec # n/v/d: suspect viral gastroenteritis, sxs have now resolved # depression: previously severe and with psychotic features, will resume her remeron and olanzapine at HS # hypothyroid: with tsh appropriately suppressed on lt4, will continue # IP status, will need > 48 hours stay for eval mgmt of above Subjective: no significant overnight events, patient feeling better Objective: Vital Signs Temp Pulse Resp BP Pulse Ox 36.6 C 102 H 18 140/83 H 98 05/05/18 04:00 05/05/18 04:00 05/05/18 04:00 05/05/18 04:00 05/05/18 04:00 Laboratory Results 05/04/18 17:20 05/04/18 05/05/18 05/06/18 05:59 05:59 05:59 Intake Total 2540 550 Output Total 5350 200 Balance -2810 350 awake alert anicteric poor dentition rrr no mrg cta b soft nt nd no cce warm dry well perfused oriented appropriate ICD10 Worksheet Patient Problems: Problems Problem Status Onset Diarrhea Acute Hyponatremia Acute Nausea and vomiting Acute Delirium Acute Major depressive disorder, recurrent episode with mood-congruent psychotic features Acute
[2018-05-05 07:41] VITALS: BP 163/100
--- NOTE | 2018-05-05 12:01 | ASMTCMCOM ---
CM Note CM Note Notes: Spoke with RN and pt, she is discharging home independent. CM will call for Medicaid cab, clothes given. CM available for any changes. DC Plan: Independent Date Signed: 05/05/2018 12:00 PM Electronically Signed By:Marva Montero RN
--- NOTE | 2018-05-05 12:03 | ASMTLACE ---
FABIANOE Length of stay for Answers: 4-6 days current admission Acuity / Level of Answers: Yes Care: Did the patient have an inpatient admission? Comorbidities - select Answers: Other Notes: HTN; Hypothyroidism all that apply # of Emergency department Answers: 1-2 visits in the last 6 months Social determinants Answers: Mental health diagnosis (anxiety, depression, pers onality disorders, etc.) Score: 12 Date Signed: 05/05/2018 12:02 PM Electronically Signed By:Marva Montero RN
--- NOTE | 2018-05-05 12:25 | ASMTCMCOM ---
CM Note CM Note Notes: Medicaid cab called, auth # [id number] Date Signed: 05/05/2018 12:19 PM Electronically Signed By:Marva Montero RN
== END 2018-05-05 13:23 | disposition home or self-care (01) | DRG 426 ==
LOC: EDUNIT# → OBSVTOIN 14:17 → F2N 15:53 → F3E 05-04 11:03
PROVIDERS: ADMIT Student in an Organized Health Care Education/Training Program; ATTEND Student in an Organized Health Care Education/Training Program
DX: E87.1 Hypo-osmolality and hyponatremia (principal); E86.1 Hypovolemia; A08.4 Viral intestinal infection, unspecified; I10 Essential (primary) hypertension; E03.9 Hypothyroidism, unspecified; J45.909 Unspecified asthma, uncomplicated; F32.89 Other specified depressive episodes; F17.210 Nicotine dependence, cigarettes, uncomplicated
CPT/HCPCS: J2405

== ENCOUNTER → 2018-07-09 | Outpatient (CLI) | payer MEDICAID | LOC: FIMAGING 12:38 → FLAB 12:38 → EDSTATUS 12:44 | PROVIDERS: ATTEND Nurse Practitioner Family | DX: M25.512 Pain in left shoulder (principal) ==

== ENCOUNTER 2019-01-05 16:59 | Emergency (ER) | payer MEDICAID ==
[2019-01-05 17:05] VITALS: BP 131/97
[2019-01-05] MEDS ORDERED: TDAP ADULT 0.5 ML INJ (BOOSTRIX) IM ONE (17:27)
--- NOTE | 2019-01-05 17:27 | EDPHY ---
H & P Stated Complaint: l 3rd digit cut with knife earlier today Time Seen by Provider: 01/05/19 17:23 HPI/ROS: HPI: This is a 48-year-old female who presents with Chief Complaint: l 3rd digit cut with knife earlier today Location: Left middle finger Quality: Laceration Duration: 4 hr prior to arrival Signs and Symptoms: No bleeding, no radiation, no numbness, no weakness, no tingling, no incontinence, no decreased range of motion, no swelling, + pain, no fever Timing: Acute Severity: Mild Context: Patient is right-hand dominant, presents with accidentally cutting her left middle finger on the medial aspect with a knife while she was trying to open up a carton of cigarettes approximately 4 hr prior to arrival. She reports that she placed a Band-Aid on the area. She has not cleaned or washed. She is unsure of her tetanus status. She complains of moderate, constant, nonradiating pain. She denies any decreased range of motion, radiation, paresthesias, weakness. Modifying Factors: Band-Aid Comment: ROS: A comprehensive 10 system review of systems is otherwise negative aside from elements mentioned in the history of present illness. MEDICAL/SURGICAL/SOCIAL HISTORY: Medical history: Hypothyroidism, psychiatric issues. LMP 2-3 weeks ago. Surgical history: Denies Social history: Heavy smoker. CONSTITUTIONAL: Petite, well-appearing middle-aged white female, awake and alert, no obvious distress HEENT: Atraumatic and normocephalic. NECK: supple, no midline tenderness Cardiovascular: Normal S1/S2, regular rate, regular rhythm, without murmur rub or gallop. PULMONARY/CHEST: Symmetrical and nontender. Clear to auscultation bilaterally. Good air movement. No accessory muscle usage. ABDOMEN: Soft, nondistended, nontender. EXTREMITIES: 2/2 pulses, strength 5/5, left middle finger medial aspect shows pinpoint superficial abrasion with no active bleeding, no surrounding erythema. No discharge. DIP/PIP/MCP flexion/extension intact with good light touch sensation. no deformities, no clubbing, no cyanosis or edema. NEUROLOGICAL: no focal neuro deficits. GCS 15. Light touch sensation intact. SKIN: Warm and dry, no erythema. no rash. Good capillary refill. Source: Patient Exam Limitations: No limitations - Personal History LMP (Females 10-55): 22-28 Days Ago Current Tetanus Diphtheria and Acellular Pertussis (TDAP): Unsure Tetanus Vaccine Date: 2006 - Medical/Surgical History Hx Asthma: Yes Hx Chronic Respiratory Disease: No Hx Diabetes: No Hx Cardiac Disease: No Hx Renal Disease: No Hx Cirrhosis: No Hx Alcoholism: No Hx HIV/AIDS: No Hx Splenectomy or Spleen Trauma: No Other PMH: PMH- asthma, depression, hyperthyroid, HTN. denies any surgeries - Social History Smoking Status: Heavy smoker Constitutional: Initial Vital Signs Temperature (C) 36.5 C 01/05/19 17:03 Heart Rate 94 01/05/19 17:03 Respiratory Rate 16 01/05/19 17:03 Blood Pressure 131/97 H 01/05/19 17:03 O2 Sat (%) 97 01/05/19 17:03 O2 Delivery Mode Room Air Allergies/Adverse Reactions: No Known Allergies Allergy (Verified 01/05/19 17:02) Home Medications: Medication Instructions Recorded Cholecalciferol (Vitamin D3) 2,000 unit PO DAILY 05/02/18 [Vitamin D3] Levothyroxine Sodium 88 mcg PO DAILY 05/02/18 Mirtazapine [Remeron] 15 mg PO HS 05/02/18 OLANZapine [Zyprexa] 20 mg PO HS 05/02/18 Acetaminophen [Tylenol 325mg (*)] 650 mg PO Q4HRS PRN tab 05/05/18 Medical Decision Making ED Course/Re-evaluation: Tetanus booster ordered. No indication for sutures or skin glue at this time. Cleaned with soap and water; bacitracin clean sterile dressing applied. Verbal and written wound care instructions provided. No signs of neurovascular compromise/tenting of skin/compartment syndrome/ extremities and joints examined above and below area of concern and are neurovascularly intact. This patient was seen under the supervision of my secondary supervising physician. I evaluated care for this patient independently. Discussed this patient with Dr. Darnell. Differential Diagnosis: Differential diagnosis includes but is not limited to cellulitis, laceration, abrasion, foreign body, nerve injury, tendon injury. - Data Points Medications Given: Discontinued Medications Diphtheria/Tetanus/Acell Pertussis (Boostrix) 0.5 ml IM .ONCE ONE Stop: 01/05/19 17:28 Last Admin: 01/05/19 17:38 Dose: 0.5 ml Departure - Departure Disposition: Home, Routine, Self-Care Clinical Impression: Abrasion of left middle finger, initial encounter Condition: Good Instructions: Abrasion (ED) Additional Instructions: Keep the dressing dry and in place for 48 hours. After 48 hours, you may remove the dressing; wash the site daily with mild soap and water; then pat dry. Apply topical antibiotic ointment daily and clean sterile dressing until fully healed. Take Tylenol 650 mg every 4 hours and/or Ibuprofen 600 mg every 8 hours with food as needed for pain. Return to the ER immediately if you experience redness, red streaks, have fevers /chills, flu like symptoms, limited range of motion, or any other symptoms that concern you. Referrals: [facility],. [Clinic] - As per Instructions
== END 2019-01-05 17:52 | disposition home or self-care (01) ==
DX: S60.413A Abrasion of left middle finger, initial encounter (principal); Z23 Encounter for immunization; W26.0XXA Contact with knife, initial encounter; Y93.89 Activity, other specified

== ENCOUNTER 2019-01-10 10:35 | Emergency (ER) | payer MEDICAID ==
[2019-01-10 10:43] VITALS: BP 118/89
[2019-01-10] MEDS ORDERED: PROPARACAINE 0.5% 15 ML OPHT DROP OP ONE (10:57)
[2019-01-10] MEDS ORDERED: FLUORESCEIN SODIUM 1 MG STRIP OP ONE (11:16)
--- NOTE | 2019-01-10 11:25 | EDPHY ---
General - History Smoking Status: Heavy smoker Time Seen by Provider: 01/10/19 10:56 Narrative: CLINICAL IMPRESSION: Left eye irritation from chemical exposure ASSESSMENT/PLAN: 48-year-old female presents to the emergency department with left eye irritation after hair dye got in her eye 2 days ago. Patient reports no vision changes, headache, dizziness. No clinical exam to suggest corneal abrasion, corneal ulceration, or foreign body. Patient was given you erythromycin ointment and referred to Ophthalmology. Warning signs return to ED sooner alignment discharge. DIFFERENTIAL DX: Differential includes but not limited to foreign body, chemical burn, corneal burn, keratitis, corneal ulceration, corneal abrasion CHIEF COMPLAINT: Hair dye in left eye HPI: 48-year-old female presents to the emergency department with left eye irritation after she accidentally bottom hair dye into the left eye 2 days ago. Patient did not UTI. She has been having tearing and itching. No reported vision changes. She does not were contacts. Her glass have worked well for her vision. No purulent discharge. No light sensitivity, headache, dizziness. PAST MEDICAL HISTORY: See nurse triage note See triage summary and nurse notes for addition applicable history Pertinent Past Surgical History: Noncontributory Family History: Noncontributory Social History: Otherwise healthy REVIEW OF SYSTEMS: A full 10 point review of systems was negative except for those mentioned in HPI. PHYSICAL EXAM: General Appearance: Alert, oriented, appropriate, cooperative, NAD, well hydrated, non-toxic appearing, VSS, no hypoxia. HEENT: TMs are clear bilaterally no perforation or FB, no injection, no evidence of serous or mucopurulent otitis. Oropharynx clear is no erythema or exudates, no tonsillar hypertrophy or asymmetry. Dentition without abnormality. Eyes: PERRLA, no acute vision change, obvious scleral erythema and mild redness surrounding the eye. No nystagmus, discharge, pain or photosensitivity. No local signs of corneal abrasion, corneal ulceration, foreign body. Conjunctiva pink, no pallor or injection Skin: Warm, dry, no rashes, no nodules on palpation. MEDICAL DECISION MAKING: Patient was seen independently. Secondary supervising physician at time of evaluation was: Dr. Mcgowan . Diagnosis: Left eye irritation after chemical exposure. New, requires workup Summary: See Assessment and Plan for summary of ED visit Patient Progress: Improved, stable for discharge. (Tremaine Gilliam) Discussion: The patient was evaluated and managed by the Physician Front Tender. My co- signature indicates that I have reviewed this chart and I agree with the findings and plan of care as documented. I am the secondary supervising physician. (Angelica Mcgowan) - Objective Vital Signs: Initial Vital Signs Temperature (C) 36.9 C 01/10/19 10:40 Heart Rate 84 01/10/19 10:40 Respiratory Rate 17 01/10/19 10:40 Blood Pressure 118/89 H 01/10/19 10:40 O2 Sat (%) 97 01/10/19 10:40 O2 Delivery Mode Room Air Allergies/Adverse Reactions: No Known Allergies Allergy (Verified 01/10/19 10:40) Home Medications: Medication Instructions Recorded Cholecalciferol (Vitamin D3) 2,000 unit PO DAILY 05/02/18 [Vitamin D3] Levothyroxine Sodium 88 mcg PO DAILY 05/02/18 Mirtazapine [Remeron] 15 mg PO HS 05/02/18 OLANZapine [Zyprexa] 20 mg PO HS 05/02/18 Acetaminophen [Tylenol 325mg (*)] 650 mg PO Q4HRS PRN tab 05/05/18 Erythromycin 0.5% 1 darrian LEFTEYE Q6 7 Days #1 tube 01/10/19 Medications Given: Discontinued Medications Proparacaine HCl (Alcaine 0.5%) 1 drops OP EDNOW ONE Stop: 01/10/19 10:58 Last Admin: 01/10/19 11:20 Dose: 1 darrian Departure - Departure Disposition: Home, Routine, Self-Care Clinical Impression: Eye irritation Condition: Good Instructions: Eye Pain (ED) Additional Instructions: DISCHARGE INSTRUCTIONS FROM YOUR DOCTOR Thank you for visiting our emergency department today. You were treated by a physician assistant chief of police today and your case was reviewed with our ED Attending physician. Please keep in mind that discharge from the emergency department does not mean that there is nothing wrong - it simply means that we have not identified an emergency condition that requires further evaluation or treatment in the hospital. You should always plan to follow up with primary care for re- evaluation of your condition in the next 2-3 days. If you have been referred to a specialist, please call as soon as possible (today or tomorrow) to schedule your follow up appointment at the appropriate time. PLEASE TAKE THE ANTIBIOTIC EYE OINTMENT PRESCRIBED. PLEASE FOLLOW UP WITH EYE DOCTOR IF SYMPTOMS PERSIST. RETURN TO ED FOR LOSS OF VISION, WORSENING PAIN , SEVERE HEADACHE, DIZZINESS, OR ANY OTHER CONCERNS People present with illnesses and injuries in different ways, and it is always possible that we have missed something. You may always return for re-evaluation if symptoms worsen or if they are not improving or if you develop new/different symptoms. Again, thank you for choosing our emergency department. We hope that you feel better. Referrals: Rachelle Asif NP [Primary Care Provider] - As per Instructions Sunny Delgado MD [Medical Doctor] - 1-2 days without fail Prescriptions: Erythromycin 0.5% 1 darrian LEFTEYE Q6 7 Days #1 tube
== END 2019-01-10 11:38 | disposition home or self-care (01) ==
DX: H57.89 Other specified disorders of eye and adnexa (principal); Z77.098 Contact with and (suspected) exposure to other hazardous, chiefly nonmedicinal, chemicals

== ENCOUNTER 2019-02-15 13:29 | Emergency (ER) | payer MEDICAID ==
--- NOTE | 2019-02-15 13:34 | EDPHY ---
H & P Time Seen by Provider: 02/15/19 13:32 HPI/ROS: CHIEF COMPLAINT: Anxiety attack HISTORY OF PRESENT ILLNESS: Patient is a 48-year-old female with a history of anxiety and depression as well as hypothyroidism on Synthroid who called 911 complaining of shortness of breath. Her symptoms began about an hour ago. She told paramedics she thought that this was anxiety. They obtained an normal EKG and a glucose of 155 and started an IV and brought here to the ER. The patient tells me she is feeling better. She declines medications. She did recently have her thyroid medication decreased for elevated thyroid levels last week. She denies recent fevers or illness. She denies any chest pain or palpitations. She denies history of cardiac or pulmonary disease. Severity: Severe Modifying factors: Resolving REVIEW OF SYSTEMS: Constitutional: denies: chills, fever, recent illness, recent injury EENTM: denies: blurred vision, double vision, nose congestion Respiratory: See HPI Cardiac: denies: chest pain, irregular heart rate, lightheadedness, palpitations Gastrointestinal/Abdominal: denies: abdominal pain, diarrhea, nausea, vomiting, blood streaked stools Genitourinary: denies: dysuria, frequency, hematuria, pain Musculoskeletal: denies: joint pain, muscle pain Skin: denies: lesions, rash, jaundice, bruising Neurological: denies: headache, numbness, paresthesia, tingling, dizziness, weakness Hematologic/Lymphatic: denies: blood clots, easy bleeding, easy bruising Immunologic/allergic: denies: HIV/AIDS, transplant 10 systems reviewed and negative except as noted EXAM: GENERAL: Well-appearing, very thin and in no acute distress. HEAD: Atraumatic, normocephalic. EYES: Pupils equal round and reactive to light, extraocular movements intact, sclera anicteric, conjunctiva are normal. ENT: TMs normal, nares patent, oropharynx clear without exudates. Moist mucous membranes. NECK: Normal range of motion, supple without lymphadenopathy or JVD. LUNGS: Breath sounds clear to auscultation bilaterally and equal. No wheezes rales or rhonchi. HEART: Regular rate and rhythm without murmurs, rubs or gallops. ABDOMEN: Soft, nontender, normoactive bowel sounds. No guarding, no rebound. No masses appreciated. BACK: No CVA tenderness, no spinal tenderness, step-offs or deformities EXTREMITIES: Normal range of motion, no pitting or edema. No clubbing or cyanosis. NEUROLOGICAL: Cranial nerves II through XII grossly intact. Normal speech, normal gait. 5/5 strength, normal movement in all extremities, normal sensation , normal reflexes PSYCH: Normal mood, normal affect. SKIN: Warm, dry, normal turgor, no visible rashes or lesions. Source: Patient, EMS Exam Limitations: No limitations - Personal History Tetanus Vaccine Date: 2006 - Medical/Surgical History Hx Asthma: Yes Hx Chronic Respiratory Disease: No Hx Diabetes: No Hx Cardiac Disease: No Hx Renal Disease: No Hx Cirrhosis: No Hx Alcoholism: No Hx HIV/AIDS: No Hx Splenectomy or Spleen Trauma: No Other PMH: PMH-depression, hyperthyroid, HTN. denies any surgeries - Family History Significant Family History: No pertinent family hx - Social History Smoking Status: Heavy smoker Alcohol Use: None Constitutional: Initial Vital Signs Temperature (C) 36.5 C 02/15/19 13:33 Heart Rate 93 02/15/19 13:33 Respiratory Rate 16 02/15/19 13:33 Blood Pressure 130/92 H 02/15/19 13:33 O2 Sat (%) 100 02/15/19 13:33 O2 Delivery Mode Room Air Allergies/Adverse Reactions: No Known Allergies Allergy (Verified 01/10/19 10:40) Home Medications: Medication Instructions Recorded Levothyroxine Sodium 88 mcg PO DAILY 05/02/18 Mirtazapine [Remeron] 15 mg PO HS 05/02/18 OLANZapine [Zyprexa] 20 mg PO HS 05/02/18 LORazepam [Ativan 1 mg (RX)] 1 mg PO Q6-8PRN PRN #7 tab 02/15/19 Medical Decision Making - Diagnostics EKG Interpretation: An EKG obtained and was read and documented in trace view. Please see trace view for full reading and report. Sinus rhythm no acute ischemic changes ED Course/Re-evaluation: 2:10 p.m. The patient states she feels much better. She has not been medicated. Her lab work thus far is unremarkable. Her EKG is unremarkable. Her heart rate is in the 90s but when I enter the room it goes up to low 100s. Will encourage fluids. 2:30 p.m. Patient continues to feel well. She has raised to go home. She declines further workup or observation. Blood work is reassuring. She is requesting a small p.r.n. Prescription for anxiolytics. Differential Diagnosis: Partial list of the Differential diagnosis considered include but were not limited to; anxiety, arrhythmia, electrolyte abnormality, thyroid abnormality and although unlikely based on the history and physical exam, I also considered infection, acute coronary disease. I discussed these differential diagnoses and the plan with the patient as well as the usual and expected course. The patient understands that the diagnosis is provisional and that in medicine we are not always correct and that further workup is often warranted. Usual and customary warnings were given. All of the patient's questions were answered. The patient was instructed to return to the emergency department should the symptoms at all worsen or return, otherwise to followup with the physician as we discussed. - Data Points Laboratory Results: Laboratory Results 02/15/19 13:30 02/15/19 13:30 02/15/19 02/15/19 13:30 13:30 WBC 6.07 10^3/uL 10^3/uL (3.80-9.50) RBC 4.38 10^6/uL 10^6/uL (4.18-5.33) Hgb 13.4 g/dL g/dL (12.6-16.3) Hct 39.3 % % (38.0-47.0) MCV 89.7 fL fL (81.5-99.8) MCH 30.6 pg pg (27.9-34.1) MCHC 34.1 g/dL g/dL (32.4-36.7) RDW 12.8 % % (11.5-15.2) Plt Count 310 10^3/uL 10^3/uL (150-400) MPV 9.3 fL fL (8.7-11.7) Neut % (Auto) 57.5 % % (39.3-74.2) Lymph % (Auto) 36.7 % % (15.0-45.0) [place] % (Auto) 4.8 % % (4.5-13.0) Eos % (Auto) 0.3 % L % (0.6-7.6) Baso % (Auto) 0.5 % % (0.3-1.7) Nucleat RBC Rel Count 0.0 % % (0.0-0.2) Absolute Neuts (auto) 3.49 10^3/uL 10^3/uL (1.70-6.50) Absolute Lymphs (auto) 2.23 10^3/uL 10^3/uL (1.00-3.00) Absolute Monos (auto) 0.29 10^3/uL L 10^3/uL (0.30-0.80) Absolute Eos (auto) 0.02 10^3/uL L 10^3/uL (0.03-0.40) Absolute Basos (auto) 0.03 10^3/uL 10^3/uL (0.02-0.10) Absolute Nucleated RBC 0.00 10^3/uL 10^3/uL (0-0.01) Immature Gran % 0.2 % % (0.0-1.1) Immature Gran # 0.01 10^3/uL 10^3/uL (0.00-0.10) Sodium 138 mEq/L mEq/L (135-145) Potassium 3.7 mEq/L mEq/L (3.5-5.2) Chloride 106 mEq/L mEq/L (97-110) Carbon Dioxide 23 mEq/l mEq/l (22-31) Anion Gap 9 mEq/L mEq/L (6-14) BUN 9 mg/dL mg/dL (7-23) Creatinine 0.8 mg/dL mg/dL (0.6-1.0) Estimated GFR > 60 Glucose 109 mg/dL H mg/dL (70-100) Calcium 9.7 mg/dL mg/dL (8.5-10.4) TSH 0.126 uIU/mL L uIU/mL (0.465-4.680) Free T4 1.68 ng/dL ng/dL (0.59-2.19) Medications Given: Discontinued Medications Sodium Chloride (Ns) 1,000 mls @ 0 mls/hr IV EDNOW ONE; Wide Open PRN Reason: Protocol Stop: 02/15/19 14:10 Last Admin: 02/15/19 14:13 Dose: 1,000 mls Departure - Departure Disposition: Home, Routine, Self-Care Clinical Impression: Anxiety Condition: Fair Instructions: Anxiety (ED) Referrals: Patient,NotPresent [Unknown] - As per Instructions Margareth Mcelroy MD [Medical Doctor] - 2-3 days without fail Prescriptions: LORazepam [Ativan 1 mg (RX)] 1 mg PO Q6-8PRN PRN #7 tab PRN Reason: *Anxiety/Agitation/Insomnia
--- NOTE | 2019-02-15 13:50 | CPEKG ---
Test Reason : OPEN Blood Pressure : / mmHG Vent. Rate : 096 BPM Atrial Rate : 096 BPM P-R Int : 121 ms QRS Dur : 066 ms QT Int : 370 ms P-R-T Axes : 069 058 058 degrees QTc Int : 468 ms Sinus rhythm Confirmed by Thompson Darnell ([id number]) on 02/15/2019 1:49:48 PM Referred By: Thompson Darnell Confirmed By:Thompson Darnell
[2019-02-15 13:59] LABS: PLATELET COUNT 310 10^3/uL (150-400)
[2019-02-15] MEDS ORDERED: NS 1,000 ML IV ONE (14:09)
[2019-02-15 14:59] VITALS: BP 142/91
--- NOTE | 2019-02-15 16:27 | ASDISCHSUM ---
Discharge Information Plan Status:Home with No Needs Medically Cleared to Leave: Discharge Date:02/15/2019 02:59 PM CM D/C Disposition:Home, Routine, Self-Care ADT D/C Disposition:Home, Routine, Self-Care Projected Discharge Date:02/15/2019 02:59 PM Transportation at D/C:Medicaid Transportation Discharge Delay Reason: Follow-Up Date:02/15/2019 02:59 PM Discharge Slot: Final Diagnosis: Placement Information Patient Contact Information Contact Name:CORI Relationship: Address: Work Phone: City: [facility] Phone: State/Zip Code:[place] Email: Financial Information Financial Class:Medicaid Primary Plan Desc:MEDICA[employer] HE[employer] Primary Plan Number:[id number] Secondary Plan Desc: Secondary Plan Number: Assessment Information Intervention Information Intervention Type:Transportation Date of Service:02/15/2019 04:24 PM Patient Type:Emergency Room Staff Member:DENNY Rueda Sharon Hours:0.25 Discipline:Event Sales Manager Severity: Comment:Arranged Medicaid cab for pt to return home (conf # [id number]) Intervention Type:Health Clinic Date of Service:02/15/2019 04:24 PM Patient Type:Emergency Room Staff Member:DENNY Rueda Sharon Hours:0.25 Discipline:Event Sales Manager Severity: Comment:Pt states she has an appt tomorrow wit h her PCP at [facility] at the [facility].
== END 2019-02-15 14:59 | disposition home or self-care (01) ==
LOC: EDUNIT#
DX: F41.9 Anxiety disorder, unspecified (principal); F32.9 Major depressive disorder, single episode, unspecified; E03.9 Hypothyroidism, unspecified; F17.200 Nicotine dependence, unspecified, uncomplicated

== ENCOUNTER 2019-03-17 16:04 | Emergency (ER) | payer MEDICAID, OTHER ==
[2019-03-17] MEDS ORDERED: LORazepam 2 MG/ML INJ IVP ONE (16:10)
--- NOTE | 2019-03-17 16:18 | EDPHY ---
H & P Stated Complaint: Panic Attack - Personal History LMP (Females 10-55): Unknown Current Tetanus/Diphtheria Vaccine: Yes Tetanus Vaccine Date: 2006 - Medical/Surgical History Hx Asthma: Yes Hx Chronic Respiratory Disease: Yes Hx Diabetes: No Hx Cardiac Disease: No Hx Renal Disease: No Hx Cirrhosis: No Hx Alcoholism: No Hx HIV/AIDS: No Hx Splenectomy or Spleen Trauma: No Other PMH: PMH-depression, hyperthyroid, HTN. denies any surgeries - Social History Smoking Status: Heavy smoker Time Seen by Provider: 03/17/19 16:07 HPI/ROS: CHIEF COMPLAINT: Acute anxiety HISTORY OF PRESENT ILLNESS: 48-year-old female history of anxiety, arrives via ambulance complaining of acute anxiety attack. She has attempted her usual meditation and relaxation techniques however these via been unsuccessful. She denies complaints of pain. Specifically, denies: Chest pain, dyspnea, back pain, headache, nausea, vomiting, illicit drug use, abdominal pain, nausea, vomiting. Denies change in medication does recently. REVIEW OF SYSTEMS: 10 systems reviewed and negative with the exception of the elements mentioned in the history of present illness PAST MEDICAL & SURGICAL HISTORY: Hypothyroid SOCIAL HISTORY:Nonsmoker. No alcohol or drug use PHYSICAL EXAM (Prior to examination, patient consented to physical exam, hands were washed and my usual and customary physical exam procedures followed) 1) GENERAL: Well-developed, well-nourished, alert and oriented. Appears anxious. 2) HEAD: Normocephalic, atraumatic 3) HEENT: Pupils equal, round, reactive to light bilaterally. Sclera anicteric. 4) NECK: Full range of motion, no meningeal signs. 5) LUNGS: Clear auscultation bilaterally, no wheezes, no rhonchi, no retractions. 6) HEART: Regular rate and rhythm, no murmur, no heave, no gallop. 7) ABDOMEN: No guarding, no rebound, no focal tenderness, 8) MUSCULOSKELETAL: Moving all extremities, no focal areas of tenderness, no obvious trauma. No peripheral edema or discoloration. 9) BACK: N no visual or palpable abnormality. 10) SKIN: No rash, no petechiae. 11) Psychiatric: Patient is oriented X 3, there is no agitation. DIFFERENTIAL DIAGNOSIS: In no particular order including but not limited to acute anxiety, panic attack, hyperthyroid (Jamarcus Wilson Colleen) Constitutional: Initial Vital Signs Temperature (C) 36.7 C 03/17/19 16:11 Heart Rate 90 03/17/19 16:11 Respiratory Rate 16 03/17/19 16:11 Blood Pressure 125/82 H 03/17/19 16:11 O2 Sat (%) 98 03/17/19 16:11 O2 Delivery Mode Room Air Allergies/Adverse Reactions: No Known Allergies Allergy (Verified 03/17/19 16:14) Home Medications: Medication Instructions Recorded Levothyroxine Sodium 88 mcg PO DAILY 05/02/18 Mirtazapine [Remeron] 15 mg PO HS 05/02/18 OLANZapine [Zyprexa] 20 mg PO HS 05/02/18 LORazepam [Ativan 1 mg (RX)] 1 mg PO Q6-8PRN PRN #7 tab 02/15/19 Medical Decision Making ED Course/Re-evaluation: I reviewed the patient's old medical records. She has no complaints of pain or discomfort. Chest pain. No dyspnea but is complaining of anxiety. She denies recent change in her thyroid medication. She has been evaluated in the ER previously for similar. Will administer Ativan and re-evaluate.Care of patient under supervision of secondary supervising physician Dr Martínez . 4:43 p.m.: Patient re-evaluated after 1 mg of Ativan. She is sleeping, easily woken, states that she is feeling "totally better". She would like to be discharged. I think she can be safely discharged at this time. I do not think that diagnostic studies indicated at this time. (Jamarcus Wilson Colleen) I did not see this patient while she was in the emergency department. However her care is discussed with the PA while the patient is in the department. I agree with treatment plan and management (Joel Martínez) - Data Points Medications Given: Discontinued Medications Lorazepam (Ativan Injection) 1 mg IVP EDNOW ONE Stop: 03/17/19 16:11 Last Admin: 03/17/19 16:20 Dose: 1 mg Departure - Departure Disposition: Home, Routine, Self-Care Clinical Impression: Acute anxiety Condition: Good Instructions: Anxiety (ED) Referrals: Asif,Rachelle, CUSTOMER SERVICER [Primary Care Provider] - 1-2 days without fail
[2019-03-17 19:02] VITALS: BP 107/76
== END 2019-03-17 19:47 | disposition home or self-care (01) ==
LOC: EDUNIT#
DX: F41.9 Anxiety disorder, unspecified (principal); E03.9 Hypothyroidism, unspecified; F17.200 Nicotine dependence, unspecified, uncomplicated
CPT/HCPCS: 96374; J2060

== ENCOUNTER 2019-03-29 17:46 | Emergency (ER) | payer MEDICAID ==
[2019-03-29 17:51] VITALS: BP 141/94
--- NOTE | 2019-03-29 18:00 | EDPHY ---
H & P Stated Complaint: anxiety, SOB Time Seen by Provider: 03/29/19 17:59 - Personal History Current Tetanus/Diphtheria Vaccine: Yes Current Tetanus Diphtheria and Acellular Pertussis (TDAP): Yes Tetanus Vaccine Date: 2006 - Medical/Surgical History Hx Asthma: Yes Hx Chronic Respiratory Disease: Yes Hx Diabetes: No Hx Cardiac Disease: No Hx Renal Disease: No Hx Cirrhosis: No Hx Alcoholism: No Hx HIV/AIDS: No Hx Splenectomy or Spleen Trauma: No Other PMH: PMH-depression, hyperthyroid, HTN, anxiety. denies any surgeries - Social History Smoking Status: Former smoker Constitutional: Initial Vital Signs Heart Rate 104 H 03/29/19 17:49 Respiratory Rate 16 03/29/19 17:49 Blood Pressure 141/94 H 03/29/19 17:49 O2 Sat (%) 96 03/29/19 17:49 O2 Delivery Mode Room Air Allergies/Adverse Reactions: No Known Allergies Allergy (Verified 03/29/19 17:48) Home Medications: Medication Instructions Recorded Levothyroxine Sodium 88 mcg PO DAILY 05/02/18 Mirtazapine [Remeron] 15 mg PO HS 05/02/18 OLANZapine [Zyprexa] 20 mg PO HS 05/02/18 LORazepam [Ativan 1 mg (RX)] 1 mg PO Q6-8PRN PRN #7 tab 02/15/19 Medical Decision Making ED Course/Re-evaluation: CHIEF COMPLAINT: Anxiety, shortness of breath HISTORY OF PRESENT ILLNESS: The patient is a 48 y/o female with a history of anxiety and depression complaining of shortness of breath and feeling anxious. She states that she is unsure why she can't breath well. She then states "I think I need to go home to relax". No fever, headache, body aches, lightheadedness, chest pain, heart palpitations, cough, abdominal pain, urinary or bowel complaints, numbness, paresthesias. REVIEW OF SYSTEMS: A comprehensive 10 system review of systems is otherwise negative aside from elements mentioned in the history of present illness and medical decision making. PHYSICAL EXAM: HR, BP, O2 Sat, RR. Temp noted General Appearance: Alert, well hydrated, appropriate, and non-toxic appearing. Head: Atraumatic without scalp tenderness or obvious injury Eyes: Pupils equal, round, reactive to light and accommodation, EOMI, no trauma , no injection. Ears: Clear bilaterally, no perforation, normal landmarks Nose: Atraumatic, no rhinorrhea, clear. Throat: There is no erythema or exudates, no lesions, normal tonsils, mucus membranes moist. Neck: Supple, 2+ carotid upstroke, nontender, no lymphadenopathy. Respiratory: No retractions, no distress, no wheezes, and no accessory muscle use. Lungs are clear to auscultation bilaterally. Cardiovascular: Regular rate and rhythm, no murmurs, rubs, or gallops. Bilateral carotid, radial, dorsalis pedis, and posterior tibial pulses intact. Good capillary refill all extremities. Gastrointestinal: Abdomen is soft, nontender, non-distended, no masses, no rebound, no guarding, no peritoneal signs. Musculoskeletal: Normal active ROM of all extremities, atraumatic. Neurological: Alert, appropriate, and interactive. The patient has normal DTRs and non-focal cranial nerves, motor, sensory, and cerebellar exam. Skin: No rashes, good turgor, no nodules on palpation. Past medical history: Depression, anxiety, hyperthyroid, hypertension Past surgical history: Denies Family history: Denies Social history: Lives in [place], , not employed DIAGNOSTICS/PROCEDURES/CRITICAL CARE TIME: Not indicated. DIFFERENTIAL DIAGNOSIS: The differential diagnosis for the patient's shortness of breath and hypoxemia included but was not limited to anxiety, pneumonia, myocardial infarction, acute mountain sickness, high altitude pulmonary edema, congestive heart failure , and pulmonary embolus. MEDICAL DECISION MAKING: The patient is a 48 y/o female with a history of anxiety and depression presenting with shortness of breath and feeling anxious. She states that she is unsure why she can't breath well and then states "I think I need to go home to relax". She has a completely normal physical exam including a normal lung exam. Her O2Sats are 98% on room air. Imaging and laboratory studies are not indicated. She is safe to be discharged home. Return precautions provided; patient is comfortable with this plan. Departure - Departure Disposition: Home, Routine, Self-Care Clinical Impression: Anxiety, Dyspnea Condition: Good Instructions: Anxiety (ED), Shortness of Breath (ED) Additional Instructions: 1. Follow-up with your primary doctor within 72 hours. 2. Return to the Emergency Department for fever, chest pain, shortness of breath , increasing pain or other worsening of condition. Referrals: Rachelle Asif PEACH GROWER [Primary Care Provider] - As per Instructions Report Scribed for: Christopher Hargrove Report Scribed by: Patti Beckett Date of Report: 03/29/19 Time of Report: 18:02
== END 2019-03-29 18:18 | disposition home or self-care (01) ==
DX: F41.9 Anxiety disorder, unspecified (principal); R06.00 Dyspnea, unspecified; F32.9 Major depressive disorder, single episode, unspecified; I10 Essential (primary) hypertension; E03.9 Hypothyroidism, unspecified; Z87.891 Personal history of nicotine dependence